=== PATIENT | male | born 1970 | race Caucasian/White ===

== ENCOUNTER 2024-01-13 17:22 | Inpatient (IN) | payer OTHER ==
[~2024-01-13] VITALS: Ht 167.6 cm; Wt 70.8 kg
[2024-01-13 17:50] VITALS: RESP 34
[2024-01-13 17:56] LABS: HEMATOCRIT. 42.8 % (42.0-52.0); HEMOGLOBIN. 14.6 g/dL (14.0-18.0); MEAN CORPUSCULAR HEMOGLOBIN 36.5 pg (28.0-32.0); MEAN CORPUSCULAR HGB CONC 34.1 g/dL (31.0-37.0); MEAN PLATELET VOLUME 8.6 fl (7.4-10.4); PLATELET 148 x1000/uL (130-400); RED CELL DISTRIBUTION WIDTH 15.9 % (11.6-14.6); WHITE BLOOD COUNT 26.2 x1000/uL (4.5-11.0)
[2024-01-13 17:59] LABS: DIFFERENTIAL COMMENT 1
[2024-01-13 18:04] LABS: CHLORIDE 100 mEq/L (98-107); POTASSIUM 4.6 mEq/L (3.5-5.1); SODIUM 132 mEq/L (136-145)
[2024-01-13 18:05] LABS: CARBON DIOXIDE 23 mEq/L (21-32)
[2024-01-13 18:07] LABS: INR 1.4; PARTIAL THROMBOPLASTIN TIME 27.3 sec (23.4-31.0); PROTHROMBIN TIME 15.4 sec (9.6-11.0)
[2024-01-13 18:10] LABS: GLUCOSE 205 mg/dL (70-105); UREA NITROGEN BLOOD 21 mg/dL (9-23)
[2024-01-13] MEDS: ALBUTEROL (0.083%) 2.5MG/3ML NEB HHN STA (18:11)
[2024-01-13 18:12] LABS: ALANINE AMINOTRANSFERASE 44 IU/L (10-49); ALBUMIN 2.8 g/dL (3.2-4.8); ASPARTATE AMINOTRANSFERASE 54 IU/L (<34); BILIRUBIN DIRECT 2.1 mg/dL (<=3.0); BILIRUBIN TOTAL 3.7 mg/dL (0.1-1.0); PROTEIN TOTAL 7.5 g/dL (6.0-8.3); TROPONIN I HIGH SENSITIVITY 6 ng/L (3.0-53)
[2024-01-13] MEDS: IPRATROPIUM BROMIDE (0.02%) 0.5MG/2.5ML NEB HHN STA (18:12)
[2024-01-13 18:17] LABS: PLATELET ESTIMATE NORMAL
[2024-01-13] MEDS: METHYLPREDNISOLONE SOD SUCC 125MG/2ML (ACT-O-VIAL) IV STA (18:38)
[2024-01-13] MEDS: NITROGLYCERIN OINT 1GM/INCH UDPKT TD ONE (18:39)
[2024-01-13] MEDS: ASPIRIN 81MG TABLET PO ONE (18:39)
[2024-01-13] MEDS: FUROSEMIDE 40MG/4ML VIAL IV ONE (18:39)
[2024-01-13 18:40] LABS: BG BASE EXCESS -3.3 mmol/L (-2.0-3.0); BG CARBOXYHEMOGLOBIN 1.2 % (0.5-1.5); BG DEOXYHEMOGLOBIN 0.3 % (0.0-5.0); BG FRACTION INSPIRED OXYGEN 40; BG HCO3 ACT 19.9 mmol/L (21.0-28.0); BG METHEMOGLOBIN 0.2 % (0.5-1.5); BG OXYGEN SATURATION 99.7 % (94.0-98.0); BG OXYHEMOGLOBIN 98.3 % (94.0-98.0); BG PH 7.425 (7.350-7.450); BG PO2 190.6 mmHg (83.0-108.0); BG SAMPLE SITE LEFT RADIAL; BG TOTAL HEMOGLOBIN 15.5 g/dL (13.5-17.5); BG TOTAL RESPIRATORY RATE 34 b/min; BG VENT MODE MASK - BIPAP
[2024-01-13] MEDS: PIPERACILLIN/TAZO 3.375G/50ML 50 ML IV ONE (19:56)
[2024-01-13] MEDS: VANCOMYCIN 1G PREMIX 200 ML IV ONE (20:26)
[2024-01-13 20:31] LABS: LACTIC ACID 5.2 mmol/L (0.4-2.0)
[2024-01-13] MEDS ORDERED: ACETAMINOPHEN 325MG TABLET PO PRN (21:15)
[2024-01-13] MEDS ORDERED: CLONIDINE 0.1MG TABLET PO PRN (21:15)
[2024-01-13] MEDS ORDERED: ONDANSETRON HCL 4MG/2ML INJ IV PRN (21:15)
[2024-01-13 21:55] LABS: ALBUMIN 2.7 g/dL (3.2-4.8)
[2024-01-13 21:58] LABS: FOLIC ACID (FOLATE) SERUM 6.03 ng/mL (>5.38)
[2024-01-13 21:59] LABS: THYROID STIMULATING HORMONE 1.22 uIU/mL (0.55-4.78)
[2024-01-13 22:00] LABS: T4 FREE 1.38 ng/dL (0.89-1.76); VITAMIN B12 SERUM 787 pg/mL (211-911)
[2024-01-13] MEDS: METHYLPREDNISOLONE SOD SUCC 40MG/ML (ACT-O-VIAL) IV SCH (22:00)
[2024-01-13] MEDS: VANCOMYCIN 750MG PMX (XELLIA) 150 ML IV NR (22:00)
[2024-01-13 22:04] LABS: INR 1.5; PARTIAL THROMBOPLASTIN TIME 29.6 sec (23.4-31.0); PROTHROMBIN TIME 16.2 sec (9.6-11.0)
[2024-01-13 22:05] LABS: TROPONIN I HIGH SENSITIVITY 35 ng/L (3.0-53)
[2024-01-13 22:11] LABS: HEPATITIS B SURFACE ANTIGEN NEGATIVE (Negative)
[2024-01-13 22:31] LABS: HEPATITIS A AB IGM NEGATIVE (Negative)
[2024-01-13 22:32] LABS: HEPATITIS B CORE AB IGM NEGATIVE (Negative); HEPATITIS C AB NON REACTIVE (Neg) (Negative)
[2024-01-14] VITALS (8 sets, daily range): BP systolic 97–135; BP diastolic 60–76; PULSE 72–96; RESP 15–20; TEMP 36.6696–36.8072; O2SAT 95–100
[2024-01-14] MEDS: PIPERACILLIN/TAZO 3.375G/50ML 50 ML IV SCH (00:03)
[2024-01-14 06:10] LABS: CARBON DIOXIDE 20 mEq/L (21-32); CHLORIDE 101 mEq/L (98-107); POTASSIUM 5.1 mEq/L (3.5-5.1); SODIUM 132 mEq/L (136-145)
[2024-01-14 06:11] LABS: CALCIUM 8.9 mg/dL (8.7-10.4)
[2024-01-14 06:15] LABS: TROPONIN I HIGH SENSITIVITY 28 ng/L (3.0-53)
[2024-01-14 06:16] LABS: CREATININE 1.1 mg/dL (0.6-1.3); GLUCOSE 196 mg/dL (70-105); LACTIC ACID 8.4 mmol/L (0.4-2.0); UREA NITROGEN BLOOD 28 mg/dL (9-23)
[2024-01-14 06:18] LABS: ALANINE AMINOTRANSFERASE 38 IU/L (10-49); ALBUMIN 2.4 g/dL (3.2-4.8); ASPARTATE AMINOTRANSFERASE 47 IU/L (<34); PROTEIN TOTAL 6.3 g/dL (6.0-8.3)
[2024-01-14] MEDS ORDERED: AZAT50TA24 PO (06:19)
[2024-01-14] MEDS ORDERED: FURO40TA5 PO (06:19)
[2024-01-14] MEDS ORDERED: METF-414 PO (06:19)
[2024-01-14] MEDS ORDERED: SPIR100T5 PO (06:19)
[2024-01-14] MEDS ORDERED: BENA10TA74 PO (06:19)
[2024-01-14] MEDS ORDERED: P20 PO (06:19)
[2024-01-14 06:25] LABS: HEMATOCRIT 38.5 % (42.0-52.0); MEAN CORPUSCULAR HEMOGLOBIN 36.7 pg (28.0-32.0); MEAN CORPUSCULAR HGB CONC 33.7 g/dL (31.0-37.0); MEAN CORPUSCULAR VOLUME 108.7 fL (80.0-94.0); PLATELET 84 x1000/uL (130-400); RED BLOOD CELL COUNT 3.54 mill/uL (4.7-6.1); RED CELL DISTRIBUTION WIDTH 15.8 % (11.6-14.6); WHITE BLOOD COUNT 30.3 x1000/uL (4.5-11.0)
[2024-01-14 06:26] LABS: BILIRUBIN TOTAL 6.1 mg/dL (0.1-1.0)
[2024-01-14 07:35] LABS: BG BASE EXCESS -5.6 mmol/L (-2.0-3.0); BG CARBOXYHEMOGLOBIN 1.9 % (0.5-1.5); BG DEOXYHEMOGLOBIN 2.8 % (0.0-5.0); BG HCO3 ACT 17.9 mmol/L (21.0-28.0); BG OXYGEN SATURATION 97.1 % (94.0-98.0); BG OXYHEMOGLOBIN 95.3 % (94.0-98.0); BG PCO2 29.4 mmHg (35.0-48.0); BG PH 7.402 (7.350-7.450); BG PO2 87.4 mmHg (83.0-108.0); BG SAMPLE SITE RIGHT RADIAL; BG TOTAL HEMOGLOBIN 13.1 g/dL (13.5-17.5); BG VENT MODE NASAL CANNULA
[2024-01-14 08:25] LABS: CLARITY URINE CLEAR (CLEAR); COLOR URINE ORANGE (YELLOW); GLUCOSE URINE NEGATIVE (NEGATIVE); KETONES URINE NEGATIVE (NEGATIVE); LEUKOCYTE ESTERASE URINE TRACE (NEGATIVE); NITRITE URINE POSITIVE (NEGATIVE); OCCULT BLOOD URINE NEGATIVE (NEGATIVE); PH URINE 5.5 (4.5-8.0); PROTEIN URINE NEGATIVE (NEGATIVE); SPECIFIC GRAVITY URINE 1.023 (1.005-1.030); UROBILINOGEN URINE 0.2 E.U./dL (0.2-1.0)
[2024-01-14 08:43] LABS: BACTERIA URINE 1+; RBC URINE NONE SEEN /hpf (0-2); SQUAMOUS EPITHELIAL CELL URINE NONE SEEN /lpf (RARE/1+); YEAST URINE NONE SEEN
[2024-01-14 08:49] LABS: *AMPHETAMINES SCREEN URINE NEGATIVE (NEGATIVE); *BARBITURATES SCREEN URINE NEGATIVE (NEGATIVE); *BENZODIAZEPINES SCREEN URINE NEGATIVE (NEGATIVE); *COCAINE SCREEN URINE NEGATIVE (NEGATIVE); CANNABINOID URINE SCREEN NEGATIVE (NEGATIVE); METHADONE URINE SCREEN NEGATIVE (NEGATIVE); OPIATES URINE SCREEN NEGATIVE (NEGATIVE); PHENCYCLIDINE URINE SCREEN NEGATIVE (NEGATIVE)
[2024-01-14 08:50] LABS: ECSTASY MDMA SCREEN URINE NEGATIVE (NEGATIVE)
[2024-01-14] MEDS: PANTOPRAZOLE SODIUM 40 MG/VIAL IV SCH (09:14)
[2024-01-14] MEDS: FUROSEMIDE 40MG/4ML VIAL IVP SCH (09:15)
[2024-01-14] MEDS ORDERED: VANCOMYCIN 1GM PMX (XELLIA) 200 ML IV SCH (11:00)
[2024-01-14] MEDS: VANCOMYCIN 1G PREMIX 200 ML IV SCH (14:07)
[2024-01-14] MEDS: SPIRONOLACTONE 50MG TABLET PO SCH (20:54)
[2024-01-14] MEDS: PIPERACILLIN/TAZO 3.375G/100ML IV SCH (22:32)
[2024-01-15] VITALS (12 sets, daily range): BP systolic 89–104; BP diastolic 56–68; PULSE 68–81; RESP 15–20; TEMP 36.3918–36.72516; O2SAT 97–100
[2024-01-15 05:27] LABS: CHLORIDE 102 mEq/L (98-107); POTASSIUM 5.5 mEq/L (3.5-5.1); SODIUM 132 mEq/L (136-145)
[2024-01-15 05:28] LABS: CALCIUM 8.6 mg/dL (8.7-10.4); CARBON DIOXIDE 28 mEq/L (21-32)
[2024-01-15 05:29] LABS: LACTIC ACID 2.7 mmol/L (0.4-2.0)
[2024-01-15 05:31] LABS: HEMOGLOBIN. 11.5 g/dL (14.0-18.0); MEAN CORPUSCULAR HEMOGLOBIN 36.4 pg (28.0-32.0); MEAN CORPUSCULAR HGB CONC 33.7 g/dL (31.0-37.0); MEAN CORPUSCULAR VOLUME 107.9 fL (80.0-94.0); PLATELET 65 x1000/uL (130-400); RED BLOOD CELL COUNT 3.15 mill/uL (4.7-6.1); RED CELL DISTRIBUTION WIDTH 15.5 % (11.6-14.6); WHITE BLOOD COUNT 21.7 x1000/uL (4.5-11.0)
[2024-01-15 05:33] LABS: CREATININE 0.8 mg/dL (0.6-1.3); GLUCOSE 189 mg/dL (70-105); UREA NITROGEN BLOOD 35 mg/dL (9-23)
[2024-01-15 05:38] LABS: DIFFERENTIAL COMMENT 1
[2024-01-15] MEDS ORDERED: CEFEPIME 1GM/50ML 50 ML IV SCH (07:45)
[2024-01-15] MEDS: SPIRONOLACTONE 50MG TABLET PO SCH (09:00)
[2024-01-15] MEDS: CEFEPIME 2GM PREMIX 100ML IV SCH (13:10)
[2024-01-15] MEDS: SODIUM POLYSTYRENE SULFONATE 15 G/60 ML BOT PO NR (13:10)
[2024-01-15] MEDS: PREDNISONE 20MG TABLET PO SCH (13:11)
[2024-01-15] MEDS ORDERED: IOHEXOL-350 100 ML BOTTLE ONE (15:11)
[2024-01-15 16:24] LABS: PLATELET ESTIMATE DECREASED
[2024-01-15] MEDS: METRONIDAZOLE 500MG TABLET PO SCH (17:33)
[2024-01-15] MEDS: VANCOMYCIN 1.25GM PMX (XELLIA) 250 ML IV SCH (23:59)
[2024-01-16] VITALS (14 sets, daily range): BP systolic 93–108; BP diastolic 62–72; PULSE 62–78; RESP 15–18; TEMP 36.16956–36.83628; O2SAT 94–98
[2024-01-16 06:20] LABS: HEMATOCRIT. 34.8 % (42.0-52.0); HEMOGLOBIN. 11.8 g/dL (14.0-18.0); MEAN CORPUSCULAR HEMOGLOBIN 36.8 pg (28.0-32.0); MEAN CORPUSCULAR HGB CONC 33.9 g/dL (31.0-37.0); MEAN CORPUSCULAR VOLUME 108.5 fL (80.0-94.0); MEAN PLATELET VOLUME 9.2 fl (7.4-10.4); PLATELET 62 x1000/uL (130-400); RED CELL DISTRIBUTION WIDTH 15.8 % (11.6-14.6); WHITE BLOOD COUNT 14.2 x1000/uL (4.5-11.0)
[2024-01-16 06:25] LABS: DIFFERENTIAL COMMENT 1
[2024-01-16 06:40] LABS: CHLORIDE 102 mEq/L (98-107); POTASSIUM 5.6 mEq/L (3.5-5.1); SODIUM 132 mEq/L (136-145)
[2024-01-16 06:41] LABS: CALCIUM 8.7 mg/dL (8.7-10.4); CARBON DIOXIDE 28 mEq/L (21-32)
[2024-01-16 06:46] LABS: CREATININE 0.7 mg/dL (0.6-1.3); GLUCOSE 184 mg/dL (70-105); UREA NITROGEN BLOOD 35 mg/dL (9-23)
[2024-01-16 06:47] LABS: LACTATE DEHYDROGENASE 211 IU/L (120-246)
[2024-01-16] MEDS: IPRATROPIUM/ALBUTEROL 0.5-3(2.5)MG/3ML NEB HHN PRN (06:47)
[2024-01-16 06:48] LABS: ALANINE AMINOTRANSFERASE 33 IU/L (10-49); ALBUMIN 2.2 g/dL (3.2-4.8); ASPARTATE AMINOTRANSFERASE 41 IU/L (<34); BILIRUBIN TOTAL 4.3 mg/dL (0.1-1.0); PROTEIN TOTAL 5.9 g/dL (6.0-8.3)
[2024-01-16] MEDS: SODIUM POLYSTYRENE SULFONATE 15 G/60 ML BOT PO NR (09:11)
[2024-01-16 13:32] LABS: PROTEIN BODY FLUID < 2.0 gm/dL
[2024-01-16] MEDS: ALBUMIN HUMAN 25GM/100ML (25%) IV NR (14:14)
[2024-01-16 14:33] LABS: BODY FLUID MONOCYTES 2 %
[2024-01-16 14:35] LABS: BODY FLUID RBC 5650 /cu mm (0-2000); BODY FLUID WBC 5575 /cu mm (0-200)
[2024-01-16 16:46] LABS: ANISOCYTOSIS 1+; PLATELET ESTIMATE MARKEDLY DECREASED
[2024-01-16] MEDS: CEFTRIAXONE 2GM/50ML 50 ML IV SCH (18:36)
[2024-01-17] VITALS (24 sets, daily range): BP systolic 95–123; BP diastolic 66–80; PULSE 60–80; RESP 16–21; TEMP 35.78064–36.6696; O2SAT 97–100
[2024-01-17] MEDS: PHYTONADIONE 10MG/ML INJ IM NR (01:14)
[2024-01-17] MEDS: SODIUM CHLORIDE 0.9% 1,000 ML IV ONE (01:15)
[2024-01-17 05:18] LABS: BASOPHILS % 0.1 % (0.0-2.0); DIFFERENTIAL COMMENT 0; EOSINOPHILS % 0.6 % (0.0-5.0); HEMATOCRIT. 34.8 % (42.0-52.0); HEMOGLOBIN. 11.6 g/dL (14.0-18.0); LYMPHOCYTES % 8.3 % (20.0-50.0); MEAN CORPUSCULAR HEMOGLOBIN 35.8 pg (28.0-32.0); MEAN CORPUSCULAR HGB CONC 33.3 g/dL (31.0-37.0); MEAN CORPUSCULAR VOLUME 107.6 fL (80.0-94.0); PLATELET 65 x1000/uL (130-400); RED BLOOD CELL COUNT 3.24 mill/uL (4.7-6.1); RED CELL DISTRIBUTION WIDTH 15.4 % (11.6-14.6); WHITE BLOOD COUNT 11.5 x1000/uL (4.5-11.0)
[2024-01-17 05:32] LABS: INR 1.7; PARTIAL THROMBOPLASTIN TIME 39.4 sec (23.4-31.0); PROTHROMBIN TIME 18.7 sec (9.6-11.0)
[2024-01-17 05:33] LABS: CHLORIDE 102 mEq/L (98-107); POTASSIUM 4.9 mEq/L (3.5-5.1); SODIUM 134 mEq/L (136-145)
[2024-01-17 05:36] LABS: CALCIUM 8.5 mg/dL (8.7-10.4); CARBON DIOXIDE 31 mEq/L (21-32)
[2024-01-17 05:40] LABS: CREATININE 0.6 mg/dL (0.6-1.3)
[2024-01-17 05:41] LABS: GLUCOSE 151 mg/dL (70-105); UREA NITROGEN BLOOD 27 mg/dL (9-23)
[2024-01-17 05:42] LABS: ALANINE AMINOTRANSFERASE 35 IU/L (10-49)
[2024-01-17 05:43] LABS: ASPARTATE AMINOTRANSFERASE 43 IU/L (<34); BILIRUBIN DIRECT 1.7 mg/dL (<=3.0); BILIRUBIN TOTAL 3.1 mg/dL (0.1-1.0); PROTEIN TOTAL 5.3 g/dL (6.0-8.3)
[2024-01-17] MEDS ORDERED: LIDOCAINE HCL 1% 30ML VIAL (10MG/ML) INFIL NR (16:30)
[2024-01-17] MEDS: MORPHINE SULFATE 2 MG/ML INJ (NOT FOR IM USE) IV NR (18:27)
[2024-01-17] MEDS: MIDAZOLAM HCL 2 MG/2 ML VIAL IV NR (18:28)
[2024-01-17] MEDS ORDERED: ALBUMIN HUMAN 25GM/500ML (5%) IV NR (19:30)
[2024-01-17] MEDS: ALBUMIN HUMAN 25GM/100ML (25%) IV NR (23:21)
[2024-01-18] VITALS (12 sets, daily range): BP systolic 89–101; BP diastolic 56–66; PULSE 56–74; RESP 15–20; TEMP 36.114–37.16964; O2SAT 97–100
[2024-01-18 09:09] LABS: CHLORIDE 103 mEq/L (98-107); POTASSIUM 4.7 mEq/L (3.5-5.1); SODIUM 135 mEq/L (136-145)
[2024-01-18 09:10] LABS: CARBON DIOXIDE 31 mEq/L (21-32)
[2024-01-18 09:11] LABS: CALCIUM 9.1 mg/dL (8.7-10.4)
[2024-01-18 09:15] LABS: CREATININE 0.6 mg/dL (0.6-1.3); GLUCOSE 104 mg/dL (70-105); UREA NITROGEN BLOOD 24 mg/dL (9-23)
[2024-01-18 09:17] LABS: ALANINE AMINOTRANSFERASE 27 IU/L (10-49); ALBUMIN 2.7 g/dL (3.2-4.8); ASPARTATE AMINOTRANSFERASE 37 IU/L (<34)
[2024-01-18 09:18] LABS: BILIRUBIN DIRECT 2.1 mg/dL (<=3.0); BILIRUBIN TOTAL 4.1 mg/dL (0.1-1.0); PROTEIN TOTAL 5.6 g/dL (6.0-8.3)
[2024-01-18 09:20] LABS: BASOPHILS % 0.2 % (0.0-2.0); DIFFERENTIAL COMMENT 0; EOSINOPHILS % 1.3 % (0.0-5.0); HEMATOCRIT. 31.6 % (42.0-52.0); LYMPHOCYTES % 11.8 % (20.0-50.0); MEAN CORPUSCULAR HEMOGLOBIN 37.7 pg (28.0-32.0); MEAN CORPUSCULAR VOLUME 107.8 fL (80.0-94.0); MEAN PLATELET VOLUME 8.9 fl (7.4-10.4); NEUTROPHILS % 76.7 % (40.0-76.0); PLATELET 52 x1000/uL (130-400); RED BLOOD CELL COUNT 2.93 mill/uL (4.7-6.1); RED CELL DISTRIBUTION WIDTH 15.2 % (11.6-14.6); WHITE BLOOD COUNT 10.1 x1000/uL (4.5-11.0)
[2024-01-19] VITALS (12 sets, daily range): BP systolic 87–106; BP diastolic 62–75; PULSE 57–72; RESP 18–20; TEMP 36.44736–36.9474; O2SAT 95–99
[2024-01-19] MEDS: ACETAMINOPHEN 325MG TABLET PO PRN (06:50)
[2024-01-19 06:59] LABS: CARBON DIOXIDE 31 mEq/L (21-32); CHLORIDE 100 mEq/L (98-107); POTASSIUM 5.1 mEq/L (3.5-5.1); SODIUM 132 mEq/L (136-145)
[2024-01-19 07:00] LABS: CALCIUM 8.7 mg/dL (8.7-10.4)
[2024-01-19 07:05] LABS: CREATININE 0.6 mg/dL (0.6-1.3); GLUCOSE 153 mg/dL (70-105); UREA NITROGEN BLOOD 21 mg/dL (9-23)
[2024-01-19 08:18] LABS: HEMATOCRIT. 35.9 % (42.0-52.0); HEMOGLOBIN. 12.4 g/dL (14.0-18.0); MEAN CORPUSCULAR HEMOGLOBIN 36.8 pg (28.0-32.0); MEAN CORPUSCULAR HGB CONC 34.4 g/dL (31.0-37.0); MEAN CORPUSCULAR VOLUME 107.1 fL (80.0-94.0); PLATELET 59 x1000/uL (130-400); RED BLOOD CELL COUNT 3.35 mill/uL (4.7-6.1); RED CELL DISTRIBUTION WIDTH 15.7 % (11.6-14.6); WHITE BLOOD COUNT 12.8 x1000/uL (4.5-11.0)
[2024-01-19 08:19] LABS: DIFFERENTIAL COMMENT 1
[2024-01-19] MEDS: OCTREOTIDE ACETATE 50 MCG/ML 1ML IV SCH (16:07)
[2024-01-19 16:14] LABS: ANISOCYTOSIS 1+; PLATELET ESTIMATE DECREASED
[2024-01-19] MEDS: ALBUMIN HUMAN 25GM/100ML (25%) IV SCH (16:26)
[2024-01-20] VITALS (12 sets, daily range): BP systolic 86–104; BP diastolic 62–73; PULSE 57–74; RESP 15–20; TEMP 36.114–36.78072; O2SAT 99–100
[2024-01-20 06:23] LABS: CARBON DIOXIDE 30 mEq/L (21-32); CHLORIDE 98 mEq/L (98-107); POTASSIUM 4.7 mEq/L (3.5-5.1); SODIUM 130 mEq/L (136-145)
[2024-01-20 06:24] LABS: CALCIUM 8.7 mg/dL (8.7-10.4)
[2024-01-20 06:29] LABS: CREATININE 0.5 mg/dL (0.6-1.3); GLUCOSE 171 mg/dL (70-105); UREA NITROGEN BLOOD 19 mg/dL (9-23)
[2024-01-20 07:51] LABS: BASOPHILS % 0.1 % (0.0-2.0); EOSINOPHILS % 1.5 % (0.0-5.0); HEMATOCRIT. 32.7 % (42.0-52.0); HEMOGLOBIN. 11.3 g/dL (14.0-18.0); LYMPHOCYTES % 7.7 % (20.0-50.0); MEAN CORPUSCULAR HEMOGLOBIN 36.9 pg (28.0-32.0); MEAN CORPUSCULAR HGB CONC 34.5 g/dL (31.0-37.0); MONOCYTES % 7.2 % (2.0-8.0); NEUTROPHILS % 83.5 % (40.0-76.0); PLATELET 52 x1000/uL (130-400); RED BLOOD CELL COUNT 3.05 mill/uL (4.7-6.1); RED CELL DISTRIBUTION WIDTH 15.1 % (11.6-14.6); WHITE BLOOD COUNT 9.5 x1000/uL (4.5-11.0)
[2024-01-20 08:02] LABS: DIFFERENTIAL COMMENT 1
[2024-01-20] MEDS: OCTREOTIDE ACETATE 100 MCG/ML VIAL IV SCH (21:44)
[2024-01-21] VITALS (12 sets, daily range): BP systolic 88–102; BP diastolic 56–71; PULSE 55–71; RESP 13–23; TEMP 36.114–36.83628; O2SAT 99–100
[2024-01-21 05:36] LABS: CHLORIDE 98 mEq/L (98-107); POTASSIUM 4.9 mEq/L (3.5-5.1); SODIUM 133 mEq/L (136-145)
[2024-01-21 05:37] LABS: CALCIUM 9.4 mg/dL (8.7-10.4); CARBON DIOXIDE 33 mEq/L (21-32)
[2024-01-21 05:42] LABS: CREATININE 0.6 mg/dL (0.6-1.3); GLUCOSE 174 mg/dL (70-105); UREA NITROGEN BLOOD 22 mg/dL (9-23)
[2024-01-21 05:44] LABS: ALANINE AMINOTRANSFERASE 17 IU/L (10-49); ALBUMIN 3.2 g/dL (3.2-4.8); ASPARTATE AMINOTRANSFERASE 23 IU/L (<34)
[2024-01-21 05:45] LABS: BILIRUBIN TOTAL 3.8 mg/dL (0.1-1.0); PROTEIN TOTAL 5.2 g/dL (6.0-8.3)
[2024-01-21 11:01] LABS: HEMATOCRIT. 33.1 % (42.0-52.0); HEMOGLOBIN. 11.6 g/dL (14.0-18.0); MEAN CORPUSCULAR HEMOGLOBIN 37.6 pg (28.0-32.0); MEAN CORPUSCULAR HGB CONC 35.2 g/dL (31.0-37.0); MEAN CORPUSCULAR VOLUME 106.8 fL (80.0-94.0); RED CELL DISTRIBUTION WIDTH 15.2 % (11.6-14.6)
[2024-01-21 12:03] LABS: DIFFERENTIAL COMMENT 1
[2024-01-21 18:26] LABS: PLATELET ESTIMATE DECREASED
[2024-01-22] VITALS (12 sets, daily range): BP systolic 87–103; BP diastolic 57–73; PULSE 53–72; RESP 12–22; TEMP 36.6696–37.2252; O2SAT 96–100
[2024-01-22 05:30] LABS: CHLORIDE 100 mEq/L (98-107); POTASSIUM 4.9 mEq/L (3.5-5.1); SODIUM 135 mEq/L (136-145)
[2024-01-22 05:31] LABS: CALCIUM 9.4 mg/dL (8.7-10.4); CARBON DIOXIDE 33 mEq/L (21-32)
[2024-01-22 05:36] LABS: CREATININE 0.7 mg/dL (0.6-1.3); GLUCOSE 179 mg/dL (70-105); UREA NITROGEN BLOOD 24 mg/dL (9-23)
[2024-01-22 05:38] LABS: ALANINE AMINOTRANSFERASE 18 IU/L (10-49); ALBUMIN 3.5 g/dL (3.2-4.8); ASPARTATE AMINOTRANSFERASE 24 IU/L (<34); BILIRUBIN TOTAL 3.2 mg/dL (0.1-1.0)
[2024-01-22 05:39] LABS: PROTEIN TOTAL 5.5 g/dL (6.0-8.3)
[2024-01-22 05:54] LABS: HEMATOCRIT. 32.4 % (42.0-52.0); HEMOGLOBIN. 11.2 g/dL (14.0-18.0); MEAN CORPUSCULAR HEMOGLOBIN 37.3 pg (28.0-32.0); MEAN CORPUSCULAR HGB CONC 34.6 g/dL (31.0-37.0); MEAN CORPUSCULAR VOLUME 107.8 fL (80.0-94.0); RED BLOOD CELL COUNT 3.01 mill/uL (4.7-6.1); RED CELL DISTRIBUTION WIDTH 16.4 % (11.6-14.6); WHITE BLOOD COUNT 8.9 x1000/uL (4.5-11.0)
[2024-01-22 07:07] LABS: DIFFERENTIAL COMMENT 1
[2024-01-22 09:47] LABS: ANISOCYTOSIS 1+; PLATELET ESTIMATE MARKEDLY DECREASED
[2024-01-22 09:49] LABS: MEAN PLATELET VOLUME 8.8 fl (7.4-10.4); PLATELET 44 x1000/uL (130-400)
[2024-01-23] VITALS (12 sets, daily range): BP systolic 89–110; BP diastolic 56–71; PULSE 55–66; RESP 13–27; TEMP 36.55848–37.16964; O2SAT 96–98
[2024-01-23 06:14] LABS: CALCIUM 9.1 mg/dL (8.7-10.4); CARBON DIOXIDE 34 mEq/L (21-32); CHLORIDE 100 mEq/L (98-107); POTASSIUM 4.9 mEq/L (3.5-5.1); SODIUM 137 mEq/L (136-145)
[2024-01-23 06:19] LABS: CREATININE 0.6 mg/dL (0.6-1.3)
[2024-01-23 06:20] LABS: GLUCOSE 154 mg/dL (70-105); UREA NITROGEN BLOOD 25 mg/dL (9-23)
[2024-01-23 06:21] LABS: ALANINE AMINOTRANSFERASE 22 IU/L (10-49); ALBUMIN 3.1 g/dL (3.2-4.8); ASPARTATE AMINOTRANSFERASE 30 IU/L (<34)
[2024-01-23 06:22] LABS: BILIRUBIN TOTAL 3.9 mg/dL (0.1-1.0); PROTEIN TOTAL 5.2 g/dL (6.0-8.3)
[2024-01-23 08:20] LABS: BASOPHILS % 0.1 % (0.0-2.0); LYMPHOCYTES % 7.9 % (20.0-50.0)
[2024-01-23 09:34] LABS: EOSINOPHILS % 1.7 % (0.0-5.0); HEMATOCRIT. 35.4 % (42.0-52.0); MEAN CORPUSCULAR HEMOGLOBIN 37.1 pg (28.0-32.0); MEAN CORPUSCULAR VOLUME 109.1 fL (80.0-94.0); MONOCYTES % 6.9 % (2.0-8.0); NEUTROPHILS % 83.4 % (40.0-76.0); RED BLOOD CELL COUNT 3.24 mill/uL (4.7-6.1); RED CELL DISTRIBUTION WIDTH 18.1 % (11.6-14.6); WHITE BLOOD COUNT 10.3 x1000/uL (4.5-11.0)
[2024-01-23 09:38] LABS: PLATELET 50 x1000/uL (130-400)
[2024-01-23 09:58] LABS: DIFFERENTIAL COMMENT 1
[2024-01-23] MEDS: ALBUMIN HUMAN 25GM/100ML (25%) IV SCH (10:42)
[2024-01-24] VITALS (12 sets, daily range): BP systolic 90–116; BP diastolic 58–69; PULSE 54–74; RESP 15–21; TEMP 36.114–36.78072; O2SAT 94–99
[2024-01-24 06:45] LABS: HEMATOCRIT. 30.7 % (42.0-52.0); HEMOGLOBIN. 10.7 g/dL (14.0-18.0); MEAN CORPUSCULAR HEMOGLOBIN 37.8 pg (28.0-32.0); MEAN CORPUSCULAR HGB CONC 34.7 g/dL (31.0-37.0); MEAN CORPUSCULAR VOLUME 108.9 fL (80.0-94.0); MEAN PLATELET VOLUME 9.2 fl (7.4-10.4); RED BLOOD CELL COUNT 2.82 mill/uL (4.7-6.1); RED CELL DISTRIBUTION WIDTH 18.5 % (11.6-14.6)
[2024-01-24 07:17] LABS: CALCIUM 9.4 mg/dL (8.7-10.4); CARBON DIOXIDE 32 mEq/L (21-32); CHLORIDE 100 mEq/L (98-107); SODIUM 137 mEq/L (136-145)
[2024-01-24 07:22] LABS: CREATININE 0.8 mg/dL (0.6-1.3); GLUCOSE 137 mg/dL (70-105); UREA NITROGEN BLOOD 27 mg/dL (9-23)
[2024-01-24 07:23] LABS: ALANINE AMINOTRANSFERASE 19 IU/L (10-49)
[2024-01-24 07:24] LABS: ALBUMIN 3.3 g/dL (3.2-4.8); ASPARTATE AMINOTRANSFERASE 25 IU/L (<34); BILIRUBIN TOTAL 4.4 mg/dL (0.1-1.0); PROTEIN TOTAL 5.1 g/dL (6.0-8.3)
[2024-01-24 08:24] LABS: DIFFERENTIAL COMMENT 1
[2024-01-24 08:28] LABS: PLATELET 34 x1000/uL (130-400)
[2024-01-24 11:13] LABS: PLATELET ESTIMATE MARKEDLY DECREASED
[2024-01-24 11:14] LABS: ANISOCYTOSIS 2+
[2024-01-25] VITALS (15 sets, daily range): BP systolic 90–114; BP diastolic 55–73; PULSE 57–83; RESP 13–27; TEMP 35.89176–37.33632; O2SAT 96–100
[2024-01-25] MEDS ORDERED: [UNRECOGNIZED DRUG - REMARK] XX SCH (12:45)
[2024-01-25] MEDS: CEFTRIAXONE 2GM/50ML 50 ML IV SCH (15:26)
[2024-01-25] MEDS: METRONIDAZOLE 500MG TABLET PO SCH (20:01)
[2024-01-26] VITALS (12 sets, daily range): BP systolic 96–111; BP diastolic 62–74; PULSE 60–74; RESP 14–23; TEMP 36.28068–36.83628; O2SAT 93–99
[2024-01-26 11:47] LABS: BASOPHILS % 0.2 % (0.0-2.0); EOSINOPHILS % 2.6 % (0.0-5.0); HEMATOCRIT. 32.9 % (42.0-52.0); HEMOGLOBIN. 11.2 g/dL (14.0-18.0); LYMPHOCYTES % 10.8 % (20.0-50.0); MEAN CORPUSCULAR HEMOGLOBIN 37.4 pg (28.0-32.0); MEAN CORPUSCULAR HGB CONC 34.1 g/dL (31.0-37.0); MEAN CORPUSCULAR VOLUME 109.7 fL (80.0-94.0); MEAN PLATELET VOLUME 9.9 fl (7.4-10.4); MONOCYTES % 9.1 % (2.0-8.0); NEUTROPHILS % 77.3 % (40.0-76.0); RED CELL DISTRIBUTION WIDTH 18.9 % (11.6-14.6); WHITE BLOOD COUNT 8.2 x1000/uL (4.5-11.0)
[2024-01-26 12:03] LABS: DIFFERENTIAL COMMENT 1; PLATELET 40 x1000/uL (130-400)
[2024-01-27] VITALS (12 sets, daily range): BP systolic 94–104; BP diastolic 62–72; PULSE 60–77; RESP 14–26; TEMP 36.22512–37.00296; O2SAT 96–98
[2024-01-28] VITALS (15 sets, daily range): BP systolic 93–109; BP diastolic 63–80; PULSE 62–78; RESP 14–29; TEMP 36.114–37.00296; O2SAT 97–98
[2024-01-28 05:46] LABS: CHLORIDE 100 mEq/L (98-107); POTASSIUM 4.6 mEq/L (3.5-5.1); SODIUM 137 mEq/L (136-145)
[2024-01-28 05:47] LABS: CALCIUM 9.4 mg/dL (8.7-10.4); CARBON DIOXIDE 33 mEq/L (21-32)
[2024-01-28 05:52] LABS: CREATININE 0.7 mg/dL (0.6-1.3); GLUCOSE 172 mg/dL (70-105)
[2024-01-28 05:53] LABS: ALANINE AMINOTRANSFERASE 33 IU/L (10-49); ALBUMIN 3.2 g/dL (3.2-4.8); ASPARTATE AMINOTRANSFERASE 39 IU/L (<34); UREA NITROGEN BLOOD 33 mg/dL (9-23)
[2024-01-28 05:55] LABS: BILIRUBIN TOTAL 4.1 mg/dL (0.1-1.0); PROTEIN TOTAL 5.2 g/dL (6.0-8.3)
[2024-01-28 06:36] LABS: HEMATOCRIT. 33.2 % (42.0-52.0); HEMOGLOBIN. 11.3 g/dL (14.0-18.0); MEAN CORPUSCULAR HEMOGLOBIN 37.6 pg (28.0-32.0); MEAN CORPUSCULAR HGB CONC 34.1 g/dL (31.0-37.0); MEAN CORPUSCULAR VOLUME 110.5 fL (80.0-94.0); MEAN PLATELET VOLUME 10.4 fl (7.4-10.4); RED CELL DISTRIBUTION WIDTH 19.6 % (11.6-14.6); WHITE BLOOD COUNT 8.4 x1000/uL (4.5-11.0)
[2024-01-28 09:06] LABS: DIFFERENTIAL COMMENT 1; PLATELET 35 x1000/uL (130-400)
[2024-01-28 20:38] LABS: PLATELET ESTIMATE DECREASED
[2024-01-29] VITALS (12 sets, daily range): BP systolic 93–103; BP diastolic 61–73; PULSE 59–77; RESP 13–24; TEMP 36.28068–36.61404; O2SAT 96–99
[2024-01-29 06:14] LABS: CHLORIDE 101 mEq/L (98-107); POTASSIUM 4.5 mEq/L (3.5-5.1); SODIUM 138 mEq/L (136-145)
[2024-01-29 06:15] LABS: CALCIUM 9.3 mg/dL (8.7-10.4); CARBON DIOXIDE 32 mEq/L (21-32)
[2024-01-29 06:20] LABS: CREATININE 0.6 mg/dL (0.6-1.3); GLUCOSE 151 mg/dL (70-105); UREA NITROGEN BLOOD 35 mg/dL (9-23)
[2024-01-29 06:21] LABS: ALANINE AMINOTRANSFERASE 39 IU/L (10-49)
[2024-01-29 06:22] LABS: ALBUMIN 3.1 g/dL (3.2-4.8); ASPARTATE AMINOTRANSFERASE 47 IU/L (<34)
[2024-01-29 06:23] LABS: BILIRUBIN TOTAL 3.8 mg/dL (0.1-1.0); PROTEIN TOTAL 5.1 g/dL (6.0-8.3)
[2024-01-29 07:15] LABS: BASOPHILS % 0.2 % (0.0-2.0); EOSINOPHILS % 2.4 % (0.0-5.0); HEMATOCRIT. 33.1 % (42.0-52.0); HEMOGLOBIN. 11.2 g/dL (14.0-18.0); LYMPHOCYTES % 9.3 % (20.0-50.0); MEAN CORPUSCULAR HEMOGLOBIN 37.2 pg (28.0-32.0); MEAN CORPUSCULAR HGB CONC 33.8 g/dL (31.0-37.0); MEAN CORPUSCULAR VOLUME 110.3 fL (80.0-94.0); MEAN PLATELET VOLUME 10.1 fl (7.4-10.4); MONOCYTES % 10.3 % (2.0-8.0); NEUTROPHILS % 77.8 % (40.0-76.0); RED CELL DISTRIBUTION WIDTH 19.8 % (11.6-14.6); WHITE BLOOD COUNT 7.2 x1000/uL (4.5-11.0)
[2024-01-29 09:09] LABS: ACTIN (SMOOTH MUSCLE) ANTIBODY 8 Units (0-19)
[2024-01-29 09:35] LABS: DIFFERENTIAL COMMENT 1
[2024-01-29 12:24] LABS: PLATELET 47 x1000/uL (130-400)
[2024-01-30] VITALS (12 sets, daily range): BP systolic 87–103; BP diastolic 61–69; PULSE 58–72; RESP 12–29; TEMP 36.33624–36.6696; O2SAT 97–100
[2024-01-30 06:12] LABS: CHLORIDE 100 mEq/L (98-107); POTASSIUM 4.5 mEq/L (3.5-5.1); SODIUM 138 mEq/L (136-145)
[2024-01-30 06:13] LABS: CARBON DIOXIDE 33 mEq/L (21-32)
[2024-01-30 06:14] LABS: CALCIUM 9.2 mg/dL (8.7-10.4)
[2024-01-30 06:18] LABS: CREATININE 0.7 mg/dL (0.6-1.3); UREA NITROGEN BLOOD 37 mg/dL (9-23)
[2024-01-30 06:20] LABS: ALANINE AMINOTRANSFERASE 45 IU/L (10-49); ALBUMIN 3.3 g/dL (3.2-4.8); ASPARTATE AMINOTRANSFERASE 48 IU/L (<34); BASOPHILS % 0.1 % (0.0-2.0); EOSINOPHILS % 1.5 % (0.0-5.0); HEMOGLOBIN. 11.1 g/dL (14.0-18.0); LYMPHOCYTES % 7.4 % (20.0-50.0); MEAN CORPUSCULAR HEMOGLOBIN 37.4 pg (28.0-32.0); MEAN CORPUSCULAR HGB CONC 33.8 g/dL (31.0-37.0); MEAN CORPUSCULAR VOLUME 110.7 fL (80.0-94.0); MEAN PLATELET VOLUME 10.6 fl (7.4-10.4); MONOCYTES % 9.9 % (2.0-8.0); NEUTROPHILS % 81.1 % (40.0-76.0); RED BLOOD CELL COUNT 2.98 mill/uL (4.7-6.1); RED CELL DISTRIBUTION WIDTH 20.2 % (11.6-14.6); WHITE BLOOD COUNT 6.8 x1000/uL (4.5-11.0)
[2024-01-30 06:21] LABS: BILIRUBIN TOTAL 4.8 mg/dL (0.1-1.0); PROTEIN TOTAL 5.6 g/dL (6.0-8.3)
[2024-01-30 06:27] LABS: INR 1.9; PROTHROMBIN TIME 20.1 sec (9.6-11.0)
[2024-01-30 06:41] LABS: GLUCOSE 168 mg/dL (70-105)
[2024-01-30 07:30] LABS: DIFFERENTIAL COMMENT 1
[2024-01-30 07:32] LABS: PLATELET 39 x1000/uL (130-400)
[2024-01-30 17:21] LABS: PLATELET 38 x1000/uL (130-400)
[2024-01-31] VITALS (12 sets, daily range): BP systolic 87–103; BP diastolic 61–73; PULSE 59–72; RESP 13–23; TEMP 36.22512–36.89184; O2SAT 11–100
[2024-01-31 16:08] LABS: HEMOGLOBIN. 12.5 g/dL (14.0-18.0); MEAN CORPUSCULAR HEMOGLOBIN 37.7 pg (28.0-32.0); MEAN CORPUSCULAR HGB CONC 33.9 g/dL (31.0-37.0); MEAN CORPUSCULAR VOLUME 111.5 fL (80.0-94.0); MEAN PLATELET VOLUME 11.4 fl (7.4-10.4); RED BLOOD CELL COUNT 3.32 mill/uL (4.7-6.1); RED CELL DISTRIBUTION WIDTH 20.5 % (11.6-14.6); WHITE BLOOD COUNT 6.3 x1000/uL (4.5-11.0)
[2024-01-31 16:09] LABS: DIFFERENTIAL COMMENT 1
[2024-01-31 16:31] LABS: PLATELET 43 x1000/uL (130-400)
[2024-01-31 20:33] LABS: PLATELET ESTIMATE DECREASED
[2024-02-01] VITALS (12 sets, daily range): BP systolic 83–107; BP diastolic 59–73; PULSE 59–75; RESP 13–22; TEMP 36.44736–36.9474; O2SAT 98–100
[2024-02-01 09:25] LABS: BASOPHILS % 0.3 % (0.0-2.0); EOSINOPHILS % 3.6 % (0.0-5.0); HEMATOCRIT. 36.4 % (42.0-52.0); HEMOGLOBIN. 12.4 g/dL (14.0-18.0); LYMPHOCYTES % 12.6 % (20.0-50.0); MEAN CORPUSCULAR HEMOGLOBIN 37.7 pg (28.0-32.0); MEAN CORPUSCULAR HGB CONC 34.1 g/dL (31.0-37.0); MEAN CORPUSCULAR VOLUME 110.8 fL (80.0-94.0); MEAN PLATELET VOLUME 10.4 fl (7.4-10.4); MONOCYTES % 9.1 % (2.0-8.0); NEUTROPHILS % 74.4 % (40.0-76.0); RED BLOOD CELL COUNT 3.28 mill/uL (4.7-6.1); RED CELL DISTRIBUTION WIDTH 20.4 % (11.6-14.6)
[2024-02-01 09:26] LABS: CARBON DIOXIDE 34 mEq/L (21-32); CHLORIDE 98 mEq/L (98-107); POTASSIUM 4.4 mEq/L (3.5-5.1); SODIUM 135 mEq/L (136-145)
[2024-02-01 09:28] LABS: CALCIUM 9.4 mg/dL (8.7-10.4)
[2024-02-01 09:32] LABS: CREATININE 0.9 mg/dL (0.6-1.3); GLUCOSE 132 mg/dL (70-105)
[2024-02-01 09:33] LABS: UREA NITROGEN BLOOD 36 mg/dL (9-23)
[2024-02-01 09:42] LABS: DIFFERENTIAL COMMENT 1; PLATELET 38 x1000/uL (130-400)
[2024-02-01] MEDS: ALBUMIN HUMAN 25GM/100ML (25%) IV SCH (17:09)
[2024-02-01] MEDS: OCTREOTIDE ACETATE 50 MCG/ML 1ML IV SCH (17:10)
[2024-02-01] MEDS: LACTOBACILLUS GG CAPSULE PO SCH (20:38)
[2024-02-02] VITALS (12 sets, daily range): BP systolic 79–89; BP diastolic 53–66; PULSE 57–70; RESP 12–21; TEMP 36.33624–36.89184; O2SAT 97–100
[2024-02-02 09:02] LABS: CARBON DIOXIDE 33 mEq/L (21-32); CHLORIDE 97 mEq/L (98-107); POTASSIUM 4.4 mEq/L (3.5-5.1); SODIUM 134 mEq/L (136-145)
[2024-02-02 09:03] LABS: CALCIUM 9.4 mg/dL (8.7-10.4)
[2024-02-02 09:07] LABS: CREATININE 0.8 mg/dL (0.6-1.3)
[2024-02-02 09:08] LABS: GLUCOSE 100 mg/dL (70-105); UREA NITROGEN BLOOD 33 mg/dL (9-23)
[2024-02-02 09:16] LABS: BASOPHILS % 0.3 % (0.0-2.0); EOSINOPHILS % 3.4 % (0.0-5.0); HEMATOCRIT. 31.5 % (42.0-52.0); HEMOGLOBIN. 10.9 g/dL (14.0-18.0); LYMPHOCYTES % 11.5 % (20.0-50.0); MEAN CORPUSCULAR HEMOGLOBIN 38.4 pg (28.0-32.0); MEAN CORPUSCULAR HGB CONC 34.6 g/dL (31.0-37.0); MEAN CORPUSCULAR VOLUME 111.1 fL (80.0-94.0); MEAN PLATELET VOLUME 10.7 fl (7.4-10.4); MONOCYTES % 10.8 % (2.0-8.0); RED BLOOD CELL COUNT 2.83 mill/uL (4.7-6.1); WHITE BLOOD COUNT 5.3 x1000/uL (4.5-11.0)
[2024-02-02 09:19] LABS: DIFFERENTIAL COMMENT 1
[2024-02-02 09:47] LABS: PLATELET 32 x1000/uL (130-400)
[2024-02-02] MEDS: ALBUMIN HUMAN 25GM/100ML (25%) IV NR (14:41)
[2024-02-03] VITALS (12 sets, daily range): BP systolic 80–93; BP diastolic 51–66; PULSE 55–72; RESP 12–20; TEMP 36.55848–36.89184; O2SAT 95–99
[2024-02-03 07:46] LABS: BASOPHILS % 0.4 % (0.0-2.0); EOSINOPHILS % 3.3 % (0.0-5.0); HEMATOCRIT. 30.9 % (42.0-52.0); HEMOGLOBIN. 10.7 g/dL (14.0-18.0); LYMPHOCYTES % 11.9 % (20.0-50.0); MEAN CORPUSCULAR HEMOGLOBIN 38.4 pg (28.0-32.0); MEAN CORPUSCULAR HGB CONC 34.6 g/dL (31.0-37.0); MONOCYTES % 9.2 % (2.0-8.0); NEUTROPHILS % 75.2 % (40.0-76.0); RED BLOOD CELL COUNT 2.78 mill/uL (4.7-6.1); RED CELL DISTRIBUTION WIDTH 19.9 % (11.6-14.6)
[2024-02-03 07:54] LABS: CARBON DIOXIDE 31 mEq/L (21-32); CHLORIDE 98 mEq/L (98-107); POTASSIUM 4.3 mEq/L (3.5-5.1); SODIUM 135 mEq/L (136-145)
[2024-02-03 07:55] LABS: CALCIUM 9.7 mg/dL (8.7-10.4)
[2024-02-03 08:00] LABS: CREATININE 0.7 mg/dL (0.6-1.3); GLUCOSE 119 mg/dL (70-105); UREA NITROGEN BLOOD 31 mg/dL (9-23)
[2024-02-03 08:08] LABS: DIFFERENTIAL COMMENT 1
[2024-02-03 08:09] LABS: ADD RBC MORPHOLOGY YES
[2024-02-03 09:29] LABS: ANISOCYTOSIS 1+; PLATELET ESTIMATE DECREASED
[2024-02-03 09:32] LABS: MEAN PLATELET VOLUME 11.7 fl (7.4-10.4); PLATELET 33 x1000/uL (130-400)
[2024-02-04] VITALS (13 sets, daily range): BP systolic 80–99; BP diastolic 55–67; PULSE 60–73; RESP 13–25; TEMP 36.28068–36.78072; O2SAT 95–100
[2024-02-04 08:32] LABS: CHLORIDE 100 mEq/L (98-107); POTASSIUM 4.5 mEq/L (3.5-5.1); SODIUM 135 mEq/L (136-145)
[2024-02-04 08:33] LABS: CALCIUM 9.3 mg/dL (8.7-10.4); CARBON DIOXIDE 30 mEq/L (21-32)
[2024-02-04 08:35] LABS: BASOPHILS % 0.3 % (0.0-2.0); EOSINOPHILS % 3.5 % (0.0-5.0); HEMATOCRIT. 33.5 % (42.0-52.0); HEMOGLOBIN. 11.3 g/dL (14.0-18.0); LYMPHOCYTES % 12.4 % (20.0-50.0); MEAN CORPUSCULAR HEMOGLOBIN 37.4 pg (28.0-32.0); MEAN CORPUSCULAR HGB CONC 33.8 g/dL (31.0-37.0); MEAN CORPUSCULAR VOLUME 110.6 fL (80.0-94.0); MEAN PLATELET VOLUME 10.8 fl (7.4-10.4); MONOCYTES % 10.6 % (2.0-8.0); NEUTROPHILS % 73.2 % (40.0-76.0); PROTHROMBIN TIME 21.3 sec (9.6-11.0); RED BLOOD CELL COUNT 3.03 mill/uL (4.7-6.1); RED CELL DISTRIBUTION WIDTH 19.7 % (11.6-14.6); WHITE BLOOD COUNT 5.8 x1000/uL (4.5-11.0)
[2024-02-04 08:38] LABS: CREATININE 0.7 mg/dL (0.6-1.3); GLUCOSE 138 mg/dL (70-105)
[2024-02-04 08:39] LABS: UREA NITROGEN BLOOD 31 mg/dL (9-23)
[2024-02-04 08:40] LABS: ALANINE AMINOTRANSFERASE 50 IU/L (10-49); ALBUMIN 3.6 g/dL (3.2-4.8); ASPARTATE AMINOTRANSFERASE 43 IU/L (<34)
[2024-02-04 08:41] LABS: BILIRUBIN DIRECT 1.9 mg/dL (<=3.0); BILIRUBIN TOTAL 5.9 mg/dL (0.1-1.0); PROTEIN TOTAL 5.8 g/dL (6.0-8.3)
[2024-02-04 10:05] LABS: DIFFERENTIAL COMMENT 1; PLATELET 32 x1000/uL (130-400)
[2024-02-04 10:06] LABS: ADD RBC MORPHOLOGY NO
[2024-02-04] MEDS: OCTREOTIDE ACETATE 100 MCG/ML VIAL IV SCH (20:33)
[2024-02-05] VITALS (14 sets, daily range): BP systolic 78–110; BP diastolic 56–83; PULSE 56–72; RESP 13–20; TEMP 36.22512–36.72516; O2SAT 94–98
[2024-02-05] MEDS: OCTREOTIDE ACETATE 50 MCG/ML 1ML IV SCH (05:26)
[2024-02-05 06:21] LABS: CHLORIDE 98 mEq/L (98-107); POTASSIUM 4.9 mEq/L (3.5-5.1); SODIUM 133 mEq/L (136-145)
[2024-02-05 06:22] LABS: CALCIUM 9.2 mg/dL (8.7-10.4); CARBON DIOXIDE 30 mEq/L (21-32)
[2024-02-05 06:27] LABS: CREATININE 0.7 mg/dL (0.6-1.3); GLUCOSE 209 mg/dL (70-105); UREA NITROGEN BLOOD 30 mg/dL (9-23)
[2024-02-05 07:45] LABS: BASOPHILS % 0.1 % (0.0-2.0); EOSINOPHILS % 1.5 % (0.0-5.0); HEMATOCRIT. 32.3 % (42.0-52.0); HEMOGLOBIN. 11.1 g/dL (14.0-18.0); LYMPHOCYTES % 8.4 % (20.0-50.0); MEAN CORPUSCULAR HEMOGLOBIN 38.1 pg (28.0-32.0); MEAN CORPUSCULAR HGB CONC 34.3 g/dL (31.0-37.0); MEAN PLATELET VOLUME 10.6 fl (7.4-10.4); MONOCYTES % 10.6 % (2.0-8.0); NEUTROPHILS % 79.4 % (40.0-76.0); RED BLOOD CELL COUNT 2.91 mill/uL (4.7-6.1); RED CELL DISTRIBUTION WIDTH 19.6 % (11.6-14.6); WHITE BLOOD COUNT 5.9 x1000/uL (4.5-11.0)
[2024-02-05 07:50] LABS: DIFFERENTIAL COMMENT 1
[2024-02-05 07:55] LABS: PLATELET 29 x1000/uL (130-400)
[2024-02-05] MEDS: PHYTONADIONE 10 MG in DEXTROSE 5% WATER 49 ML IV SCH (12:44)
[2024-02-05] MEDS: SODIUM CHLORIDE 0.9% 500 ML IV ONE (13:00)
[2024-02-05] MEDS: OCTREOTIDE 1,000 MCG in SODIUM CHLORIDE 0.9% 98 ML IV SCH (19:54)
[2024-02-06] VITALS (13 sets, daily range): BP systolic 82–96; BP diastolic 58–69; PULSE 56–68; RESP 12–28; TEMP 36.16956–37.00296; O2SAT 94–97
[2024-02-06 06:03] LABS: CHLORIDE 100 mEq/L (98-107); POTASSIUM 4.9 mEq/L (3.5-5.1); SODIUM 134 mEq/L (136-145)
[2024-02-06 06:05] LABS: BASOPHILS % 0.2 % (0.0-2.0); EOSINOPHILS % 2.7 % (0.0-5.0); HEMATOCRIT. 32.3 % (42.0-52.0); HEMOGLOBIN. 11.3 g/dL (14.0-18.0); LYMPHOCYTES % 9.2 % (20.0-50.0); MEAN CORPUSCULAR HEMOGLOBIN 38.6 pg (28.0-32.0); MEAN CORPUSCULAR HGB CONC 34.9 g/dL (31.0-37.0); MEAN CORPUSCULAR VOLUME 110.5 fL (80.0-94.0); MEAN PLATELET VOLUME 10.5 fl (7.4-10.4); MONOCYTES % 9.6 % (2.0-8.0); NEUTROPHILS % 78.3 % (40.0-76.0); RED BLOOD CELL COUNT 2.92 mill/uL (4.7-6.1); RED CELL DISTRIBUTION WIDTH 19.7 % (11.6-14.6); WHITE BLOOD COUNT 6.4 x1000/uL (4.5-11.0)
[2024-02-06 06:06] LABS: CALCIUM 9.1 mg/dL (8.7-10.4); CARBON DIOXIDE 29 mEq/L (21-32)
[2024-02-06 06:11] LABS: CREATININE 0.7 mg/dL (0.6-1.3); GLUCOSE 217 mg/dL (70-105); UREA NITROGEN BLOOD 27 mg/dL (9-23)
[2024-02-06 06:13] LABS: ALANINE AMINOTRANSFERASE 54 IU/L (10-49); ALBUMIN 3.1 g/dL (3.2-4.8); ASPARTATE AMINOTRANSFERASE 39 IU/L (<34)
[2024-02-06 06:14] LABS: BILIRUBIN DIRECT 1.8 mg/dL (<=3.0); BILIRUBIN TOTAL 4.5 mg/dL (0.1-1.0); PROTEIN TOTAL 5.1 g/dL (6.0-8.3)
[2024-02-06 06:58] LABS: DIFFERENTIAL COMMENT 1
[2024-02-06 06:59] LABS: ADD RBC MORPHOLOGY NO
[2024-02-06 15:05] LABS: PLATELET 25 x1000/uL (130-400)
[2024-02-07] VITALS (12 sets, daily range): BP systolic 85–105; BP diastolic 61–74; PULSE 54–66; RESP 14–22; TEMP 36.28068–37.00296; O2SAT 97–99
[2024-02-07] MEDS: SODIUM CHLORIDE 0.9% (SEPSIS BOLUS) IV NR (05:03)
[2024-02-07 08:16] LABS: BASOPHILS % 0.1 % (0.0-2.0); EOSINOPHILS % 2.3 % (0.0-5.0); HEMATOCRIT. 34.3 % (42.0-52.0); HEMOGLOBIN. 11.8 g/dL (14.0-18.0); LYMPHOCYTES % 10.9 % (20.0-50.0); MEAN CORPUSCULAR HEMOGLOBIN 38.1 pg (28.0-32.0); MEAN CORPUSCULAR HGB CONC 34.3 g/dL (31.0-37.0); MEAN CORPUSCULAR VOLUME 111.1 fL (80.0-94.0); MEAN PLATELET VOLUME 10.5 fl (7.4-10.4); MONOCYTES % 10.3 % (2.0-8.0); NEUTROPHILS % 76.4 % (40.0-76.0); RED BLOOD CELL COUNT 3.09 mill/uL (4.7-6.1); RED CELL DISTRIBUTION WIDTH 19.6 % (11.6-14.6)
[2024-02-07 08:21] LABS: CARBON DIOXIDE 28 mEq/L (21-32); CHLORIDE 102 mEq/L (98-107); POTASSIUM 4.8 mEq/L (3.5-5.1); SODIUM 135 mEq/L (136-145)
[2024-02-07 08:22] LABS: CALCIUM 8.9 mg/dL (8.7-10.4)
[2024-02-07 08:24] LABS: INR 1.9; PROTHROMBIN TIME 20.1 sec (9.6-11.0)
[2024-02-07 08:26] LABS: CREATININE 0.7 mg/dL (0.6-1.3); GLUCOSE 148 mg/dL (70-105)
[2024-02-07 08:27] LABS: UREA NITROGEN BLOOD 25 mg/dL (9-23)
[2024-02-07 08:28] LABS: ALANINE AMINOTRANSFERASE 55 IU/L (10-49); ALBUMIN 3.1 g/dL (3.2-4.8); ASPARTATE AMINOTRANSFERASE 35 IU/L (<34)
[2024-02-07 08:29] LABS: BILIRUBIN TOTAL 5.1 mg/dL (0.1-1.0); PROTEIN TOTAL 5.1 g/dL (6.0-8.3)
[2024-02-07 08:54] LABS: DIFFERENTIAL COMMENT 1; PLATELET 25 x1000/uL (130-400)
[2024-02-08] VITALS (12 sets, daily range): BP systolic 76–127; BP diastolic 56–74; PULSE 52–69; RESP 12–19; TEMP 36.33624–37.28076; O2SAT 96–98
[2024-02-08] MEDS: SODIUM CHLORIDE 0.9% (SEPSIS BOLUS) IV NR (06:07)
[2024-02-08 07:53] LABS: BASOPHILS % 0.6 % (0.0-2.0); EOSINOPHILS % 2.5 % (0.0-5.0); HEMATOCRIT. 34.3 % (42.0-52.0); HEMOGLOBIN. 11.7 g/dL (14.0-18.0); MEAN CORPUSCULAR HEMOGLOBIN 37.9 pg (28.0-32.0); MEAN CORPUSCULAR HGB CONC 34.2 g/dL (31.0-37.0); MEAN CORPUSCULAR VOLUME 110.8 fL (80.0-94.0); MONOCYTES % 12.1 % (2.0-8.0); NEUTROPHILS % 71.8 % (40.0-76.0); RED BLOOD CELL COUNT 3.09 mill/uL (4.7-6.1); RED CELL DISTRIBUTION WIDTH 19.5 % (11.6-14.6); WHITE BLOOD COUNT 5.9 x1000/uL (4.5-11.0)
[2024-02-08 08:37] LABS: DIFFERENTIAL COMMENT 1
[2024-02-08 08:41] LABS: ADD RBC MORPHOLOGY NO
[2024-02-08 11:12] LABS: PLATELET 29 x1000/uL (130-400)
[2024-02-08] MEDS: FUROSEMIDE 20MG/2ML VIAL IVP NR (14:15)
[2024-02-08] MEDS: ALBUMIN HUMAN 25GM/100ML (25%) IV SCH (16:42)
[2024-02-09] VITALS (12 sets, daily range): BP systolic 109–134; BP diastolic 61–75; PULSE 51–67; RESP 13–30; TEMP 36.3918–36.6696; O2SAT 95–99
[2024-02-09 08:25] LABS: BASOPHILS % 0.2 % (0.0-2.0); HEMATOCRIT. 31.8 % (42.0-52.0); HEMOGLOBIN. 10.8 g/dL (14.0-18.0); MEAN CORPUSCULAR HEMOGLOBIN 37.5 pg (28.0-32.0); MEAN CORPUSCULAR HGB CONC 33.8 g/dL (31.0-37.0); MEAN CORPUSCULAR VOLUME 110.9 fL (80.0-94.0); MEAN PLATELET VOLUME 10.6 fl (7.4-10.4); MONOCYTES % 9.4 % (2.0-8.0); NEUTROPHILS % 76.4 % (40.0-76.0); RED BLOOD CELL COUNT 2.87 mill/uL (4.7-6.1); RED CELL DISTRIBUTION WIDTH 19.1 % (11.6-14.6)
[2024-02-09 09:06] LABS: DIFFERENTIAL COMMENT 1
[2024-02-09 09:08] LABS: ADD RBC MORPHOLOGY NO
[2024-02-09 10:01] LABS: INR 2.1; PROTHROMBIN TIME 22.2 sec (9.6-11.0)
[2024-02-09 15:23] LABS: PLATELET 26 x1000/uL (130-400)
[2024-02-09] MEDS: METRONIDAZOLE 500MG TABLET PO SCH (18:52)
[2024-02-09] MEDS: CEFTRIAXONE 1GM/50ML 50 ML IV SCH (19:35)
[2024-02-10] VITALS (12 sets, daily range): BP systolic 115–144; BP diastolic 63–91; PULSE 54–79; RESP 11–27; TEMP 36.55848–36.9474; O2SAT 95–99
[2024-02-10 08:25] LABS: BASOPHILS % 0.5 % (0.0-2.0); EOSINOPHILS % 1.3 % (0.0-5.0); HEMATOCRIT. 33.5 % (42.0-52.0); HEMOGLOBIN. 11.5 g/dL (14.0-18.0); LYMPHOCYTES % 13.1 % (20.0-50.0); MEAN CORPUSCULAR HEMOGLOBIN 38.3 pg (28.0-32.0); MEAN CORPUSCULAR HGB CONC 34.5 g/dL (31.0-37.0); MEAN CORPUSCULAR VOLUME 111.2 fL (80.0-94.0); MEAN PLATELET VOLUME 11.2 fl (7.4-10.4); MONOCYTES % 9.2 % (2.0-8.0); NEUTROPHILS % 75.9 % (40.0-76.0); RED BLOOD CELL COUNT 3.01 mill/uL (4.7-6.1); RED CELL DISTRIBUTION WIDTH 19.3 % (11.6-14.6); WHITE BLOOD COUNT 5.6 x1000/uL (4.5-11.0)
[2024-02-10 08:57] LABS: DIFFERENTIAL COMMENT 1
[2024-02-10 08:58] LABS: PLATELET 26 x1000/uL (130-400)
[2024-02-10] MEDS ORDERED: PHYTONADIONE 10MG/ML INJ IM SCH (10:45)
[2024-02-10] MEDS: PHYTONADIONE 10MG/ML INJ SUBCUT SCH (12:39)
[2024-02-10] MEDS: OCTREOTIDE ACETATE 100 MCG/ML VIAL SUBCUT SCH (20:16)
[2024-02-11] VITALS (13 sets, daily range): BP systolic 110–153; BP diastolic 63–92; PULSE 52–62; RESP 12–25; TEMP 36.22512–37.61412; O2SAT 92–98
[2024-02-11 07:57] LABS: PROTHROMBIN TIME 22.1 sec (9.6-11.0)
[2024-02-11 07:58] LABS: INR 2.1
[2024-02-11 09:07] LABS: BASOPHILS % 0.3 % (0.0-2.0); EOSINOPHILS % 1.3 % (0.0-5.0); HEMATOCRIT. 33.9 % (42.0-52.0); HEMOGLOBIN. 11.6 g/dL (14.0-18.0); LYMPHOCYTES % 12.2 % (20.0-50.0); MEAN CORPUSCULAR HEMOGLOBIN 37.7 pg (28.0-32.0); MEAN CORPUSCULAR HGB CONC 34.1 g/dL (31.0-37.0); MEAN CORPUSCULAR VOLUME 110.5 fL (80.0-94.0); MEAN PLATELET VOLUME 10.6 fl (7.4-10.4); MONOCYTES % 9.6 % (2.0-8.0); NEUTROPHILS % 76.6 % (40.0-76.0); RED BLOOD CELL COUNT 3.07 mill/uL (4.7-6.1); RED CELL DISTRIBUTION WIDTH 19.2 % (11.6-14.6)
[2024-02-11 09:52] LABS: DIFFERENTIAL COMMENT 1
[2024-02-11 09:53] LABS: ADD RBC MORPHOLOGY NO
[2024-02-11 14:44] LABS: PLATELET 23 x1000/uL (130-400)
[2024-02-12] VITALS (13 sets, daily range): BP systolic 86–138; BP diastolic 53–81; PULSE 49–66; RESP 12–20; TEMP 36.16956–37.11408; O2SAT 97
[2024-02-12 06:16] LABS: BASOPHILS % 0.1 % (0.0-2.0); EOSINOPHILS % 0.6 % (0.0-5.0); HEMATOCRIT. 33.7 % (42.0-52.0); HEMOGLOBIN. 11.5 g/dL (14.0-18.0); LYMPHOCYTES % 7.8 % (20.0-50.0); MEAN CORPUSCULAR HEMOGLOBIN 37.6 pg (28.0-32.0); MEAN CORPUSCULAR VOLUME 110.5 fL (80.0-94.0); MONOCYTES % 10.6 % (2.0-8.0); NEUTROPHILS % 80.9 % (40.0-76.0); RED BLOOD CELL COUNT 3.05 mill/uL (4.7-6.1)
[2024-02-12 06:31] LABS: CALCIUM 9.3 mg/dL (8.7-10.4); CARBON DIOXIDE 29 mEq/L (21-32); CHLORIDE 102 mEq/L (98-107); POTASSIUM 4.8 mEq/L (3.5-5.1); SODIUM 136 mEq/L (136-145)
[2024-02-12 06:36] LABS: ALANINE AMINOTRANSFERASE 45 IU/L (10-49); ALBUMIN 3.7 g/dL (3.2-4.8); CREATININE 0.7 mg/dL (0.6-1.3); GLUCOSE 282 mg/dL (70-105)
[2024-02-12 06:37] LABS: ASPARTATE AMINOTRANSFERASE 37 IU/L (<34); UREA NITROGEN BLOOD 32 mg/dL (9-23)
[2024-02-12 06:39] LABS: BILIRUBIN TOTAL 5.2 mg/dL (0.1-1.0); PROTEIN TOTAL 5.6 g/dL (6.0-8.3)
[2024-02-12 06:49] LABS: PROTHROMBIN TIME 20.9 sec (9.6-11.0)
[2024-02-12 07:06] LABS: DIFFERENTIAL COMMENT 1
[2024-02-12] MEDS: PREDNISONE 20MG TABLET PO SCH (08:19)
[2024-02-12 09:44] LABS: PLATELET 23 x1000/uL (130-400)
[2024-02-12] MEDS: SPIRONOLACTONE 50MG TABLET PO SCH (10:04)
[2024-02-12] MEDS: FUROSEMIDE 40MG/4ML VIAL IVP SCH (10:04)
[2024-02-13] VITALS (12 sets, daily range): BP systolic 86–142; BP diastolic 61–81; PULSE 54–70; RESP 11–23; TEMP 36.50292–37.28076; O2SAT 97–98
[2024-02-13 07:27] LABS: BASOPHILS % 0.1 % (0.0-2.0); EOSINOPHILS % 1.4 % (0.0-5.0); HEMATOCRIT. 34.1 % (42.0-52.0); HEMOGLOBIN. 11.6 g/dL (14.0-18.0); LYMPHOCYTES % 12.8 % (20.0-50.0); MEAN CORPUSCULAR HEMOGLOBIN 37.3 pg (28.0-32.0); MEAN CORPUSCULAR HGB CONC 33.9 g/dL (31.0-37.0); MEAN CORPUSCULAR VOLUME 110.1 fL (80.0-94.0); MEAN PLATELET VOLUME 11.8 fl (7.4-10.4); MONOCYTES % 10.6 % (2.0-8.0); NEUTROPHILS % 75.1 % (40.0-76.0); RED CELL DISTRIBUTION WIDTH 18.9 % (11.6-14.6)
[2024-02-13 11:02] LABS: DIFFERENTIAL COMMENT 1
[2024-02-13] MEDS: ACETAMINOPHEN 500MG TABLET PO PRN (11:06)
[2024-02-13 11:07] LABS: PLATELET 24 x1000/uL (130-400)
[2024-02-14] VITALS (16 sets, daily range): BP systolic 82–111; BP diastolic 55–72; PULSE 52–68; RESP 11–19; TEMP 36.114–37.00296
[2024-02-14 06:35] LABS: BASOPHILS % 0.3 % (0.0-2.0); EOSINOPHILS % 1.2 % (0.0-5.0); HEMATOCRIT. 34.1 % (42.0-52.0); HEMOGLOBIN. 11.8 g/dL (14.0-18.0); LYMPHOCYTES % 9.9 % (20.0-50.0); MEAN CORPUSCULAR HEMOGLOBIN 38.3 pg (28.0-32.0); MEAN CORPUSCULAR HGB CONC 34.7 g/dL (31.0-37.0); MEAN CORPUSCULAR VOLUME 110.3 fL (80.0-94.0); MEAN PLATELET VOLUME 10.1 fl (7.4-10.4); MONOCYTES % 8.6 % (2.0-8.0); RED BLOOD CELL COUNT 3.09 mill/uL (4.7-6.1); RED CELL DISTRIBUTION WIDTH 19.2 % (11.6-14.6); WHITE BLOOD COUNT 6.4 x1000/uL (4.5-11.0)
[2024-02-14 06:48] LABS: DIFFERENTIAL COMMENT 1
[2024-02-14 06:49] LABS: ADD RBC MORPHOLOGY NO
[2024-02-14 13:55] LABS: PLATELET 19 x1000/uL (130-400)
[2024-02-14] MEDS: CEFTRIAXONE 1GM/50ML 50 ML IV SCH (16:55)
[2024-02-15] VITALS (13 sets, daily range): BP systolic 86–104; BP diastolic 51–64; PULSE 58–73; RESP 13–35; TEMP 36.114–36.78072; O2SAT 98–99
[2024-02-15 10:14] LABS: BASOPHILS % 0.2 % (0.0-2.0); EOSINOPHILS % 1.5 % (0.0-5.0); HEMOGLOBIN. 12.3 g/dL (14.0-18.0); LYMPHOCYTES % 11.8 % (20.0-50.0); MEAN CORPUSCULAR HEMOGLOBIN 37.7 pg (28.0-32.0); MEAN CORPUSCULAR HGB CONC 34.2 g/dL (31.0-37.0); MEAN CORPUSCULAR VOLUME 110.2 fL (80.0-94.0); MEAN PLATELET VOLUME 10.5 fl (7.4-10.4); MONOCYTES % 10.8 % (2.0-8.0); NEUTROPHILS % 75.7 % (40.0-76.0); RED BLOOD CELL COUNT 3.27 mill/uL (4.7-6.1); RED CELL DISTRIBUTION WIDTH 19.4 % (11.6-14.6); WHITE BLOOD COUNT 6.3 x1000/uL (4.5-11.0)
[2024-02-15 11:41] LABS: DIFFERENTIAL COMMENT 1; PLATELET 28 x1000/uL (130-400)
[2024-02-16] VITALS (9 sets, daily range): BP systolic 84–104; BP diastolic 57–67; PULSE 63–71; RESP 13–20; TEMP 36.6696–37.05852; O2SAT 97–100
[2024-02-16 07:21] LABS: CARBON DIOXIDE 28 mEq/L (21-32); CHLORIDE 99 mEq/L (98-107); POTASSIUM 4.3 mEq/L (3.5-5.1); SODIUM 135 mEq/L (136-145)
[2024-02-16 07:27] LABS: CREATININE 0.7 mg/dL (0.6-1.3); GLUCOSE 143 mg/dL (70-105); UREA NITROGEN BLOOD 30 mg/dL (9-23)
[2024-02-16 07:28] LABS: ALANINE AMINOTRANSFERASE 63 IU/L (10-49); ALBUMIN 3.5 g/dL (3.2-4.8); ASPARTATE AMINOTRANSFERASE 68 IU/L (<34)
[2024-02-16 07:29] LABS: BILIRUBIN TOTAL 7.4 mg/dL (0.1-1.0); PROTEIN TOTAL 5.7 g/dL (6.0-8.3)
[2024-02-16 07:49] LABS: BASOPHILS % 0.7 % (0.0-2.0); EOSINOPHILS % 2.4 % (0.0-5.0); HEMATOCRIT. 35.3 % (42.0-52.0); HEMOGLOBIN. 12.2 g/dL (14.0-18.0); MEAN CORPUSCULAR HEMOGLOBIN 37.6 pg (28.0-32.0); MEAN CORPUSCULAR HGB CONC 34.7 g/dL (31.0-37.0); MEAN CORPUSCULAR VOLUME 108.4 fL (80.0-94.0); MONOCYTES % 11.7 % (2.0-8.0); NEUTROPHILS % 73.2 % (40.0-76.0); RED BLOOD CELL COUNT 3.26 mill/uL (4.7-6.1); RED CELL DISTRIBUTION WIDTH 19.3 % (11.6-14.6); WHITE BLOOD COUNT 6.2 x1000/uL (4.5-11.0)
[2024-02-16 08:01] LABS: DIFFERENTIAL COMMENT 1
[2024-02-16 08:32] LABS: MEAN PLATELET VOLUME 11.9 fl (7.4-10.4); PLATELET 27 x1000/uL (130-400)
[2024-02-16] MEDS ORDERED: AMOX1TAB15 MT ×2 (12:17→12:20)
[2024-02-16] MEDS ORDERED: FURO-152 MT (12:17)
[2024-02-16] MEDS ORDERED: SPIR25TA MT (12:17)
[2024-02-17] MEDS ORDERED: SPIRONOLACTONE 25MG TABLET PO SCH (09:00)
== END 2024-02-16 18:49 | disposition home or self-care (01) | DRG 720 ==
LOC: ER 17:22 → EDBEDREQ 19:33 → EDBEDREQTM 19:33 → 5EST 22:40
PROVIDERS: ADMIT Internal Medicine; ATTEND Internal Medicine
PROC: 5A09357 Assistance with Respiratory Ventilation, Less than 24 Consecutive Hours, Continuous Positive Airway Pressure (ICD-10-PCS; principal; 2024-01-13)
PROC: 0W994ZZ Drainage of Right Pleural Cavity, Percutaneous Endoscopic Approach (ICD-10-PCS; 2024-01-14)
PROC: 0W994ZZ Drainage of Right Pleural Cavity, Percutaneous Endoscopic Approach (ICD-10-PCS; 2024-01-16)
PROC: 0W9930Z Drainage of Right Pleural Cavity with Drainage Device, Percutaneous Approach (ICD-10-PCS; 2024-01-17)
PROC: 30233R1 Transfusion of Nonautologous Platelets into Peripheral Vein, Percutaneous Approach (ICD-10-PCS; 2024-01-25)
DX: A40.8 Other streptococcal sepsis (principal); J96.01 Acute respiratory failure with hypoxia; D65 Disseminated intravascular coagulation [defibrination syndrome]; J86.9 Pyothorax without fistula; E87.20 Acidosis, unspecified; D68.9 Coagulation defect, unspecified; J18.9 Pneumonia, unspecified organism; E87.1 Hypo-osmolality and hyponatremia; E88.09 Other disorders of plasma-protein metabolism, not elsewhere classified; K76.6 Portal hypertension; I11.0 Hypertensive heart disease with heart failure; I50.9 Heart failure, unspecified; R18.8 Other ascites; J39.8 Other specified diseases of upper respiratory tract; D75.89 Other specified diseases of blood and blood-forming organs; J98.11 Atelectasis; K74.60 Unspecified cirrhosis of liver; N39.0 Urinary tract infection, site not specified; E80.6 Other disorders of bilirubin metabolism; D53.9 Nutritional anemia, unspecified; E87.5 Hyperkalemia; J91.8 Pleural effusion in other conditions classified elsewhere; R16.1 Splenomegaly, not elsewhere classified; E11.9 Type 2 diabetes mellitus without complications; Z79.84 Long term (current) use of oral hypoglycemic drugs; Z79.899 Other long term (current) drug therapy; Z86.19 Personal history of other infectious and parasitic diseases; S30.810A Abrasion of lower back and pelvis, initial encounter; X58.XXXA Exposure to other specified factors, initial encounter; Y93.89 Activity, other specified; Y92.89 Other specified places as the place of occurrence of the external cause; Y99.8 Other external cause status
CPT/HCPCS: 32555; 36415; 36600; 71045; 71250; 74174; 76604; 76700; 80048; 80053; 80076; 80202; 80305; 81003; 82040; 82105; 82247; 82375; 82607; 82746; 82805; 82962; 83036; 83605; 83615; 83880; 83986; 84145; 84439; 84443; 84484; 85025; 85027; 85651; 86022; 86038; 86705; 86709; 86850; 86900; 87077; 87186; 87340; 93005; 93306; 93970; 94640; 94660; 99291; A4606; A4663; A6261; C1893; J0692; J0696; J1940; J2250; J2270; J2354; J2470; J2543; J2919; J2920; J3370; J3430; J3490; J7050; J7060; J7512; P9034; P9041; P9047; Q9967